=== PATIENT | female | born 1995 | race Caucasian/White ===

== ENCOUNTER → 2016-11-09 | Outpatient (CLI) | payer MEDICAID ==
[~2016-11-09] MED LIST: AMOXICILLIN500 M2 PO; FAMILY PHARMAC325 MG PO; IBUPROFEN400 MG PO; IRON TABLETS325 MG PO; MOTRIN 400MG.400 MG PO; PERCOCET1 TAB PO; PRENATAL PLUS1 TA1 PO
--- NOTE | 2016-11-10 10:26 | RADIOLOGY REPORT PS360 ---
US TRANSVAGINAL PREG HISTORY: DATES Patient Age: 21 years: Female Ordering Physician: Kenny Byrnes MD TECHNIQUE: Transvaginal pelvic ultrasound COMPARISON :None relevant FINDINGS Early single viable intrauterine gestation. Yolk sac, correlation is visualized. Mean sac size = 1.58 cm The crown-rump length = 0.98 cm = 7 weeks 1 day. Yolk sac = 0.49 cm. Heart rate 136 BPM. Average ultrasound age 7 weeks 1 day Gestational age = 7 weeks 1 day based on LMP 09/20/2016. Left ovary 2 cm x 1.2 cm x 1.7 cm. Scattered small follicles left ovary none measuring over 7 mm size. Right ovary measuring 3.4 cm x 2.8 cm x 1.9 cm. Cystic area right ovary measuring 1.6 x 1.2 cm with moderate wall thickness and increase color Doppler flow allowing its margin-.. Most likely this reflects a corpus luteum cyst. But warrants correlation with beta hCG. No additional findings within this cystic area to raise concern otherwise IMPRESSION: Single viable early anterior gestation. 7 weeks 1 day Average Ultrasound Age, matches anticipated Gestational Age 1.6 cm cystic area at the right ovary most likely corpus luteum cyst, with increase color Doppler flow is margin.
== END ==
LOC: RAD 10:00
DX: O26.841 Uterine size-date discrepancy, first trimester (principal)

== ENCOUNTER → 2017-02-08 | Outpatient (CLI) | payer MEDICAID ==
--- NOTE | 2017-02-08 14:58 | RADIOLOGY REPORT PS360 ---
US PREG COMP: INDICATION: ANATOMY OB US ORDERING PHYSICIAN: Kenny Byrnes MD PATIENT AGE: 21 years TECHNIQUE: ultrasound transabdominal scanning. COMPARISON: No previous relevant studies. FINDINGS: Single viable intrauterine gestation. Breech position. Placenta: Anterior placenta grade 1. Scattered placental lakes are present There is average amount fluid. The cervix appears satisfactory. Closed and measuring 3 cm in length. Complete survey performed and was unremarkable on the submitted images as in PACS. No discrete anomalies identified on survey imaging by technologist. Active fetus. Three-vessel cord with satisfactory umbilical cord insertion. 4- chamber heart noted. Survey of brain & ventricles. Face and neck survey unremarkable. Diaphragm and chest views unremarkable. Abdomen: Both kidneys noted and unremarkable. Stomach noted and satisfactory. Spine: Survey of the spine satisfactory with no anomalies identified nor imaged. Both arms and legs noted. Amniotic Fluid: Adequate. Maternal adnexa: No significant findings. Measurements: Average ultrasound age 19 weeks 6 days. Gestational Age 20 weeks 1 day. Estimated due date by ultrasound age 406/29/2017. Estimated weight 318 g. 31st percentile . BPD = 19 weeks 6 days OFD = 20 weeks 4 days HC = 19 weeks 4 days AC = 20 weeks 3 days FL = 19 weeks 4 days Heart Rate = 156 BPM Cerebellum = 21 weeks 2 days Humerus = 19 weeks 5 days HC/AC is 1.12. CI is 76%. FL/BPD is 77%. FL/AC is 20%. IMPRESSION: There is a single live fetus in breech presentation with an average ultrasound age of 19 weeks 6 days and an estimated due date of 06/29/2017. No obvious anomalies. Please see above for detail.
== END ==
LOC: RAD 10:00
DX: Z36.0 Encounter for antenatal screening for chromosomal anomalies (principal)